=== PATIENT | female | born 1990 | race Caucasian/White ===

== ENCOUNTER 2016-03-23 11:32 | Day surgery (SDC) | payer BC ==
[2016-03-18 12:12] VITALS: BMI 29.2
[~2016-03-23 11:32] MED LIST: DEXAMETHASONE SOD PHOSPHATE 10 MG/ML 1 ML VIAL IV ONE; HYDROmorphone 1 MG/ML 1 ML SYRINGE IVP PRN; LACTATED RINGERS 1,000 ML IV SCH; MIDAZOLAM 2 MG/2 ML VIAL IV PRN; ONDANSETRON 4 MG/2 ML VIAL IVP ONE; Pre Op ABX Message 1 EACH MISC MISCELLANE ONE
[2016-03-23] MEDS ORDERED: LIDOCAINE 1% 20 ML VIAL (10MG/ML) FOR IV START INTRADERMA ONE (12:07)
[2016-03-23] MEDS ORDERED: SCOPOLAMINE 1.5MG/72HR PATCH TRANSDERM STA (12:14)
[2016-03-23] MEDS ORDERED: SUCCINYLCHOLINE CHLORIDE 100 MG/5 ML SYR IV ONE (12:54)
[2016-03-23] MEDS ORDERED: fentaNYL (PF) 50 MCG/ML 2 ML AMP ONE (12:54)
[2016-03-23] MEDS ORDERED: PROPOFOL 10 MG/ML 20 ML VIAL IV ONE (12:54)
[2016-03-23] MEDS ORDERED: LIDOCAINE 1% INJ 10MG/ML (20 ML MDV) ONE (12:54)
[2016-03-23] MEDS ORDERED: MIDAZOLAM 2 MG/2 ML VIAL ONE (12:54)
[2016-03-23] MEDS ORDERED: SODIUM CHLORIDE 0.9% 50 ML with ceFAZolin 2,000 MG IV ONE ×2 (13:02)
[2016-03-23] MEDS ORDERED: BUPIVACAINE (PF) 0.25% 30 ML VIAL SQ ONE (13:12)
[2016-03-23 14:21] VITALS: RESP 16; TEMP 97.3
--- NOTE | 2016-03-23 14:28 | P.PCN ---
Date of Procedure: 03/23/16 Preoperative Diagnosis: Hallux abductovalgus deformity right foot Postoperative Diagnosis: Same Surgeon: Alexis Pang Operative Findings: Unremarkable Description of Procedure: On the day of the surgery she was taken to the operating room in good condition placed on the operating table supine position where an IV was started and general anesthetic agents were administered the patient's ankle were then prepped and draped in usual aseptic manner over heavy web roll padding an ankle tourniquet was placed above the malleoli of the patient's right ankle Asians right foot and ankle were then elevated and exsanguinated of blood eczema only 2 minutes. At this time the ankle tourniquet to the patient's right ankle was inflated to approximately 275 mmHg At this point in time attention was directed to the dorsal aspect of the first metatarsal phalangeal joint of the patient's right foot where an approximately 6 cm dorsal linear incision was made the incision was deepened via sharp dissection down through the level of the subcutaneous tissue layers. All neurovascular structures encountered were identified isolated and were retracted and any bleeding vessels were clamped electrocauterized the surgical procedure copious amounts sterile saline solution was used to irrigate the surgical site. Dissection was then carried deep via sharp and blunt technique down to level Periosteal Structures Overlying the First Metatarsal Phalangeal Joint These Were Incised Utilizing an Inverted L Incision and Underscored and Retracted from the Underlying Bone Lying Lysing Oscillating Bone Saw the Hyperostosis Present on the Medial Side of the First Metatarsal Phalangeal Joint Was Resected Flush in Line with the Shaft of the Bone and Removed in Total from the Surgical Site Attention Was Then Directed to the Aspect of the Incision Where Dissection Was Carried Deep down to Level of the Some Parosteal Structures Overlying the Base of the Proximal Phalanx These Were Incised in Line with the Original Skin Incision and Underscored and Retracted from the Underlying Bone Utilizing Oscillating Bone Saw a Dorsal to Plantar Wedge Osteotomy Was Performed in Such a Manner That the [place] of the Wedge Was Directed Laterally the Base of the Wedge Was Directed Medially the Lateral Cortex Was Not Disrupted the Encompass Wedge of Bone Was Removed in Total from the Surgical Site. To Surgical Drill Holes Were Then Fashioned on Either Side of the Osteotomy in Such a Manner That They Met with Then. Utilizing Double Strength 28-gauge Monofilament Stainless Steel Wire the Osteotomy Was Fixated and Anatomically Closed in Opposed Position. An Completion of This Dissection Was Carried Deep down along the Lateral Side of the First Metatarsal Phalangeal Joint Where a Lateral Capsulotomy Was Performed Redundant Capsule on the Medial Side of the Joint Was Then Removed Removed. Completion of This the Hallux Was Seen to Maintain a Rectus Position. Periosteal Structures Were Then Coaptated and Maintained Utilizing 201 3-0 Vicryl Simple Interrupted Suture Subcutaneous Tissue Layers and Then Coaptated and Maintained Utilizing 3-0 Vicryl Simple Interrupted Suture and the Skin Was Closed Utilizing 4-0 Nylon Simple Interrupted Suture Adaptic Kerlix Fluffs Four-Inch Conformer and 4 Inch Coban Was Used To Form a Compression Dressing and the Ankle Tourniquet to the Patient's Right Ankle Was Deflated Adequate Hemostatic Return Was Seen in All Digits the Patient's Right Foot Specifically the Right Hallux. The Patient Tolerated the Surgery and Anesthesia Well Was Taken Recovery Room in Good Postoperative Condition.
[2016-03-23] MEDS ORDERED: HYDROcodone/APAP 5-325MG 1 EACH TAB PO ONE (15:02)
[2016-03-23 15:27] VITALS: BP 118/80; PULSE 81
== END 2016-03-23 15:42 | disposition home or self-care (01) ==
LOC: OR 11:32
PROVIDERS: ATTEND Podiatrist Foot & Ankle Surgery
DX: M20.11 Hallux valgus (acquired), right foot (principal); Z72.0 Tobacco use; Z79.1 Long term (current) use of non-steroidal anti-inflammatories (NSAID); Z79.891 Long term (current) use of opiate analgesic; Z79.899 Other long term (current) drug therapy
CPT/HCPCS: 81025; 88304; 88311; 28298; J2250; J1100; J2405; J0690; J2001; J3010; J0330; J2704

== ENCOUNTER → 2018-08-24 | Outpatient (CLI) | payer OTHER ==
--- NOTE | 2018-08-24 18:04 | US ---
EXAMINATION TYPE: US pelvic complete DATE OF EXAM: 08/24/2018 COMPARISON: NONE CLINICAL HISTORY: 27-year-old female N94.6 DYSMENORRHEA. Off depo for 1 year and cycles are very shor t but heavy with clots. TECHNIQUE: Transabdominal sonographic images of the pelvis were acquired. Patient was not able to fu lly fill for exam Date of LMP: 08/16/2018 FINDINGS: EXAM MEASUREMENTS: Uterus: 6.8 x 5.5 x 3.1 cm Endometrial Stripe: 1.3 cm Right Ovary: 2.2 x 2.0 x 1.5 cm Left Ovary: 2.3 x 1.7 x 1.8 cm 1. Uterus: Anteverted, wnl 2. Endometrium: wnl 3. Right Ovary: wnl 4. Left Ovary: 1.3cm dominate follicle seen, wnl. 5. Bilateral Adnexa: wnl 6. Posterior cul-de-sac: wnl IMPRESSION: A 1.3 cm dominant follicle within the left ovary. Otherwise, unremarkable transabdominal sonographic examination of the pelvis.
== END | disposition home or self-care (01) ==
LOC: RADUSWWP 14:25
PROVIDERS: ATTEND Family Medicine
DX: N94.6 Dysmenorrhea, unspecified (principal)
CPT/HCPCS: 76856

== ENCOUNTER → 2018-12-26 | Outpatient (CLI) | payer OTHER ==
[~2018-12-26] MED LIST changes: +COSYNTROPIN 0.25 MG VIAL IVP NR; -DEXAMETHASONE SOD PHOSPHATE 10 MG/ML 1 ML VIAL IV ONE; -HYDROmorphone 1 MG/ML 1 ML SYRINGE IVP PRN; -LACTATED RINGERS 1,000 ML IV SCH; -MIDAZOLAM 2 MG/2 ML VIAL IV PRN; -ONDANSETRON 4 MG/2 ML VIAL IVP ONE; -Pre Op ABX Message 1 EACH MISC MISCELLANE ONE; +SODIUM CHLORIDE 0.9% 500 ML 500 ML in EMPTY BAG 1 BAG IV PRN
[2018-12-26 09:19] VITALS: BP 119/80; PULSE 64; RESP 16; TEMP 98.2
[2018-12-26 11:21] LABS: T4, Free (Free Thyroxine) 0.93 ng/dL (0.78-2.19)
[2018-12-26 16:35] LABS: Thyroid Peroxidase Antibodies <28.0 U/mL (0.0-60.0)
== END | disposition home or self-care (01) ==
LOC: PROCWHC3 08:40
PROVIDERS: ATTEND Internal Medicine Endocrinology, Diabetes & Metabolism
DX: E03.8 Other specified hypothyroidism (principal); Z84.89 Family history of other specified conditions
CPT/HCPCS: 36415; 83835; 84439; 84443; 84480; 86376

== ENCOUNTER → 2019-02-11 | Outpatient (CLI) | payer OTHER ==
[2019-02-11 17:48] LABS: Thyroid Peroxidase Antibodies <28.0 U/mL (0.0-60.0)
== END | disposition home or self-care (01) ==
LOC: LABWHC1 09:29
PROVIDERS: ATTEND Internal Medicine Endocrinology, Diabetes & Metabolism
DX: E03.8 Other specified hypothyroidism (principal); Z84.89 Family history of other specified conditions
CPT/HCPCS: 36415; 84439; 84443; 84480; 86376

== ENCOUNTER → 2019-04-12 | Outpatient (CLI) | payer OTHER | END | disposition home or self-care (01) | LOC: LABWHC1 12:14 | PROVIDERS: ATTEND Internal Medicine Endocrinology, Diabetes & Metabolism | DX: E03.8 Other specified hypothyroidism (principal) | CPT/HCPCS: 36415; 84443 ==

== ENCOUNTER → 2019-10-25 | Outpatient (CLI) | payer OTHER | END | disposition home or self-care (01) | LOC: LABWHC1 09:47 | PROVIDERS: ATTEND Internal Medicine Endocrinology, Diabetes & Metabolism | DX: E03.8 Other specified hypothyroidism (principal) | CPT/HCPCS: 36415; 84443 ==

== ENCOUNTER → 2020-02-08 | Outpatient (CLI) | payer OTHER | END | disposition home or self-care (01) | LOC: LABMAIN 12:26 | PROVIDERS: ATTEND Internal Medicine Endocrinology, Diabetes & Metabolism | DX: E03.8 Other specified hypothyroidism (principal) | CPT/HCPCS: 36415; 84443 ==

== ENCOUNTER → 2020-05-04 | Outpatient (CLI) | payer OTHER | END | disposition home or self-care (01) | LOC: LABWHC1 14:12 | PROVIDERS: ATTEND Internal Medicine Endocrinology, Diabetes & Metabolism | DX: E03.8 Other specified hypothyroidism (principal) | CPT/HCPCS: 36415; 84443 ==

== ENCOUNTER → 2020-07-17 | Outpatient (CLI) | payer OTHER | END | disposition home or self-care (01) | LOC: LABWHC1 11:32 | PROVIDERS: ATTEND Internal Medicine Endocrinology, Diabetes & Metabolism | DX: E03.8 Other specified hypothyroidism (principal) | CPT/HCPCS: 36415; 84443 ==

== ENCOUNTER → 2021-04-21 | Outpatient (CLI) | payer OTHER ==
[2021-04-21 19:21] LABS: African American GFR (CKD) 106.6 (60.0-200.0); Albumin 4.4 g/dL (3.8-4.9); Albumin/Globulin Ratio 1.4 (1.60-3.17); BUN/Creat Ratio 14.47 Ratio (12.00-20.00); Blood Urea Nitrogen 12.3 mg/dL (9.0-27.0); Calcium 9.5 mg/dL (8.7-10.3); Carbon Dioxide 25.8 mmol/L (20.0-27.5); Globulin 3.1 g/dL (1.6-3.3); Non-African American GFR(CKD) 91.9 (60.0-200.0); Potassium 4.3 mmol/L (3.5-5.5); Total Bilirubin 0.4 mg/dL (0.30-1.20); Total Protein 7.6 g/dL (6.2-8.2)
== END | disposition home or self-care (01) ==
LOC: LABWHC1 10:38
PROVIDERS: ATTEND Internal Medicine Endocrinology, Diabetes & Metabolism
DX: E03.8 Other specified hypothyroidism (principal)
CPT/HCPCS: 36415; 80053; 84443

== ENCOUNTER → 2021-11-04 | Outpatient (CLI) | payer OTHER ==
[2021-11-04 15:30] LABS: African American GFR (CKD) 104.5 (60.0-200.0); Albumin 4.6 g/dL (3.8-4.9); Albumin/Globulin Ratio 1.57 (1.60-3.17); Anion Gap 11.8 mmol/L (10.00-18.00); BUN/Creat Ratio 16.32 Ratio (12.00-20.00); Blood Urea Nitrogen 14.1 mg/dL (9.0-27.0); Calcium 9.8 mg/dL (8.7-10.3); Carbon Dioxide 28.2 mmol/L (20.0-27.5); Globulin 2.9 g/dL (1.6-3.3); Non-African American GFR(CKD) 90.1 (60.0-200.0); Total Bilirubin 0.9 mg/dL (0.30-1.20); Total Protein 7.5 g/dL (6.2-8.2)
== END | disposition home or self-care (01) ==
LOC: LABWHC1 08:44
PROVIDERS: ATTEND Internal Medicine Endocrinology, Diabetes & Metabolism
DX: E03.8 Other specified hypothyroidism (principal)
CPT/HCPCS: 36415; 80053; 84443

== ENCOUNTER → 2022-06-17 | Outpatient (CLI) | payer OTHER ==
[2022-06-17 19:34] LABS: African American GFR (CKD) 121.3 (60.0-200.0); Albumin 4.4 g/dL (3.8-4.9); Albumin/Globulin Ratio 1.54 (1.60-3.17); Anion Gap 10.6 mmol/L (10.00-18.00); BUN/Creat Ratio 25.03 Ratio (12.00-20.00); Calcium 9.5 mg/dL (8.7-10.3); Carbon Dioxide 26.5 mmol/L (20.0-27.5); Globulin 2.9 g/dL (1.6-3.3); Non-African American GFR(CKD) 104.7 (60.0-200.0); T4, Free (Free Thyroxine) 1.54 ng/dL (0.800-1.800); Total Bilirubin 0.5 mg/dL (0.30-1.20); Total Protein 7.3 g/dL (6.2-8.2)
[2022-06-17 20:44] LABS: Basophils # (A) 0.06 X 10*3/uL (0.00-0.10); Basophils % (A) 0.9 %; Eosinophils # (A) 0.15 X 10*3/uL (0.04-0.35); Eosinophils % (A) 2.3 %; HCT 38.6 % (37.2-46.3); HGB 12.9 g/dL (12.0-15.0); Immature Grans, Automated 0.3 %; Lymphocytes # (A) 1.54 X 10*3/uL (0.90-5.00); Lymphocytes % (A) 23.4 %; MCH 30.4 pg (27.0-32.0); MCHC 33.4 g/dL (32.0-37.0); Mean Platelet Volume 9.8 fL (9.5-12.2); Monocytes # (A) 0.53 X 10*3/uL (0.20-1.00); Monocytes % (A) 8.1 %; NRBC Per 100 WBC 0 /100 WBCS (0.0-0.0); Neutrophils # (A) 4.28 X 10*3/uL (1.80-7.70); Platelet Count 314 X 10*3/uL (140-440); RBC 4.24 X 10*6/uL (4.10-5.20); RDW 12.9 % (11.5-14.5); WBC 6.58 X 10*3/uL (4.50-10.00)
== END | disposition home or self-care (01) ==
LOC: LABWHC1 11:22
PROVIDERS: ATTEND Family Medicine
DX: D35.00 Benign neoplasm of unspecified adrenal gland (principal)
CPT/HCPCS: 36415; 80053; 84439; 84443; 85025

== ENCOUNTER → 2022-12-28 | Outpatient (CLI) | payer OTHER ==
[2022-12-28 16:23] LABS: ALT 14 U/L (8-44); AST 18 U/L (13-35); Albumin 4.4 d/dL (3.8-4.9); Albumin/Globulin Ratio 1.76 Ratio (1.60-3.17); Alkaline Phosphatase 50 U/L (41-126); Blood Urea Nitrogen 11.2 mg/dL (9.0-27.0); Calcium 9.6 mg/dL (8.7-10.3); Carbon Dioxide 26.7 mmol/L (21.6-31.8); Chloride 103 mmol/L (96-109); Globulin 2.5 d/dL (1.6-3.3); Glucose 87 mg/dL (70-110); Sodium 139 mmol/L (135-145); Total Bilirubin 0.5 mg/dL (0.3-1.2); Total Protein 6.9 d/dL (6.2-8.2)
== END | disposition home or self-care (01) ==
LOC: LABWHC1 10:03
PROVIDERS: ATTEND Internal Medicine Endocrinology, Diabetes & Metabolism
DX: E03.8 Other specified hypothyroidism (principal)
CPT/HCPCS: 36415; 80053; 84443